=== PATIENT | male | born 1990 | race Caucasian/White ===

== ENCOUNTER 2017-06-22 07:10 | Inpatient (IN) | payer OTHER ==
[2017-06-22] VITALS (7 sets, daily range): BP systolic 118–130; BP diastolic 56–67; PULSE 69–95; RESP 12–17; TEMP 97.8–99; O2SAT 98–100
[~2017-06-22] VITALS: Ht 175.3 cm; Wt 68.0 kg
[2017-06-22] MEDS ORDERED: ONDANSETRON HCL 4 MG/2 ML VIAL ONE (07:18)
[2017-06-22] MEDS ORDERED: MORPHINE SULFATE 4 MG/ML INJ ONE (07:18)
[2017-06-22] MEDS ORDERED: IOHEXOL 350 MG/ML 10 ML VIAL (for RAD DIAG) IVCONTRAST ONE (07:32)
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
[2017-06-22 07:39] LABS: AUTOMATED NEUTROPHIL # 5.1 TH/MM3 (1.8-7.7); BASOPHIL % 0.5 % (0.0-2.0); EOSINOPHIL % 0.4 % (0.0-4.0); HEMATOCRIT 38.9 % (39.0-51.0); HEMOGLOBIN 13.1 GM/DL (13.0-17.0); LYMPH % 22.6 % (9.0-44.0); LYMPHOCYTE # 1.6 TH/MM3 (1.0-4.8); MEAN CELL VOLUME 85.2 FL (80.0-100.0); MEAN CORPUSCULAR HEMOGLOBIN 28.6 PG (27.0-34.0); MEAN CORPUSCULAR HGB CONC 33.6 % (32.0-36.0); MEAN PLATELET VOLUME 10.2 FL (7.0-11.0); MONOCYTE # 0.4 TH/MM3 (0-0.9); NEUT % 71.5 % (16.0-70.0); PLATELET COUNT 116 TH/MM3 (150-450); RED BLOOD COUNT 4.57 MIL/MM3 (4.50-5.90); RED CELL DISTRIBUTION WIDTH 13.1 % (11.6-17.2); WHITE BLOOD COUNT 7.1 TH/MM3 (4.0-11.0)
[2017-06-22] MEDS ORDERED: DIPHTH/TETANUS/ACEL PERTUSSIS (BOOSTER) 0.5 ML VIAL/PFS IM ONE (07:51)
[2017-06-22] MEDS ORDERED: ceFAZolin 2 GM PREMIX 50 ML ONE (07:51)
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
[2017-06-22 07:57] LABS: INTERNATIONAL NORMALIZED RATIO 1.1 RATIO; PROTHROMBIN TIME - PATIENT 11.2 SEC (9.8-11.6)
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
[2017-06-22] MEDS ORDERED: NALOXONE HCL 0.4 MG/ML AMP IV PUSH PRN ×2 (08:00→11:30)
[2017-06-22] MEDS ORDERED: MORPHINE SULFATE 2 MG/ML INJ IV PUSH ONE (08:00)
[2017-06-22] MEDS ORDERED: SODIUM CHLORIDE 0.9% FLUSH 10 ML FLUSH IV FLUSH PRN (08:00)
[2017-06-22] MEDS ORDERED: Post-op Orders (for Pharmacy) XX ONE (08:00)
[2017-06-22] MEDS ORDERED: metroNIDAZOLE 500 MG INJ 100 ML IV SCH (08:00)
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
[2017-06-22] MEDS: SODIUM CHLORIDE 0.9% FLUSH 10 ML FLUSH IV FLUSH SCH ×2 (09:00→22:58)
[2017-06-22] MEDS ORDERED: DO NOT ADM ANY ANTICOAGULANT DRUGS PRN (09:27)
[2017-06-22] MEDS ORDERED: HEPARIN SODIUM - IV 10,000 UNITS/10 ML VIAL OTHER ONE (09:36)
[2017-06-22] MEDS ORDERED: *morphine SULFATE 4 MG/ML PERIprocedure ONLY ONE (09:39)
[2017-06-22] MEDS ORDERED: *morphine SULFATE 10 MG/ML PERIprocedure ONLY ONE ×3 (09:43→10:40)
[2017-06-22] MEDS ORDERED: *HYDROmorphone PF 1 MG VIAL PERIprocedural Use ONLY ONE ×2 (09:48→10:02)
[2017-06-22] MEDS ORDERED: MORPHINE SULFATE 2 MG/ML INJ IV PUSH PRN (10:45)
[2017-06-22] MEDS: PANTOPRAZOLE SODIUM 40 MG VIAL IV PUSH SCH (11:00)
[2017-06-22] MEDS: SODIUM CHLOR 0.9% 1000 ML INJ 1,000 ML IV SCH ×2 (11:00→22:59)
[2017-06-22] MEDS ORDERED: MORPHINE SULFATE 30 MG/30 ML PCA IV SCH (11:30)
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
[2017-06-22] MEDS: PCA - TOTAL MG MORPHINE DELIVERED PER SHIFT SCH ×2 (14:00→22:57)
[2017-06-22] MEDS: metroNIDAZOLE 500 MG INJ 100 ML IV SCH ×2 (15:10→22:56)
[2017-06-22] MEDS ORDERED: diphenhydrAMINE HCL 50 MG/ML VIAL ONE (21:27)
[2017-06-22] MEDS: diphenhydrAMINE HCL 50 MG/ML VIAL IV PRN (21:28)
[2017-06-22] MEDS: ONDANSETRON HCL 4 MG/2 ML VIAL IV PUSH PRN ×2 (23:49→23:52)
[2017-06-22] MEDS: HYDROmorphone HCL PF 2 MG/ML VIAL IV PRN ×2 (23:50→23:52)
[2017-06-23] VITALS (11 sets, daily range): BP systolic 111–137; BP diastolic 70–80; PULSE 71–91; RESP 17–23; TEMP 98–99.3; O2SAT 93–98
[2017-06-23] MEDS: HYDROmorphone HCL PF 2 MG/ML VIAL IV PRN ×6 (02:45→23:55)
[2017-06-23] MEDS: diphenhydrAMINE HCL 50 MG/ML VIAL IV PRN (02:45)
[2017-06-23] MEDS: SODIUM CHLOR 0.9% 1000 ML INJ 1,000 ML IV SCH ×2 (05:32→16:55)
[2017-06-23] MEDS: metroNIDAZOLE 500 MG INJ 100 ML IV SCH (06:04)
[2017-06-23 06:10] LABS: AUTOMATED NEUTROPHIL # 6.6 TH/MM3 (1.8-7.7); BASOPHIL % 0.3 % (0.0-2.0); EOSINOPHIL % 0.1 % (0.0-4.0); HEMATOCRIT 36.9 % (39.0-51.0); HEMOGLOBIN 12.3 GM/DL (13.0-17.0); LYMPHOCYTE # 0.7 TH/MM3 (1.0-4.8); MEAN CELL VOLUME 85.8 FL (80.0-100.0); MEAN CORPUSCULAR HEMOGLOBIN 28.6 PG (27.0-34.0); MEAN CORPUSCULAR HGB CONC 33.3 % (32.0-36.0); MEAN PLATELET VOLUME 10.1 FL (7.0-11.0); MONO % 9.2 % (0.0-8.0); MONOCYTE # 0.7 TH/MM3 (0-0.9); NEUT % 81.4 % (16.0-70.0); PLATELET COUNT 107 TH/MM3 (150-450); RED CELL DISTRIBUTION WIDTH 13.2 % (11.6-17.2); WHITE BLOOD COUNT 8.1 TH/MM3 (4.0-11.0)
[2017-06-23 06:35] LABS: ALBUMIN 3.7 GM/DL (3.4-5.0); BICARBONATE 27.1 MEQ/L (21.0-32.0); CALCIUM 8.2 MG/DL (8.5-10.1); CREATININE 0.81 MG/DL (0.60-1.30)
[2017-06-23 06:37] LABS: DIRECT BILIRUBIN ADULT 0.2 MG/DL (0.0-0.2)
[2017-06-23 06:39] LABS: TOTAL BILIRUBIN ADULT 1.2 MG/DL (0.2-1.0); TOTAL PROTEIN 6.4 GM/DL (6.4-8.2)
[2017-06-23] MEDS: METHOCARBAMOL 500 MG TAB PO SCH ×3 (06:45→20:04)
[2017-06-23] MEDS: ACETAMINOPHEN 1000 MG/100 ML 100 ML IV SCH ×4 (06:45→23:55)
[2017-06-23] MEDS ORDERED: LACTULOSE SYRUP 20 GM/30 ML CUP PO PRN (06:45)
--- NOTE | 2017-06-23 08:06 | RADRPT ---
EXAM DATE/TIME: 06/23/2017 07:49 [facility] COMPARISON: CT THORAX W CONTRAST, June 22, 2017, 7:18. CHEST SINGLE AP, June 22, 2017, 7:12. INDICATIONS : Shortness of breath and abdominal pain. MEDICAL HISTORY : None. SURGICAL HISTORY : None. ENCOUNTER: Initial ACUITY: 1 day PAIN SCORE: 0/10 LOCATION: Bilateral chest FINDINGS: Portable AP view of the chest demonstrates a normal-sized cardiac silhouette. No effusion, consolidat ion, or pneumothorax is visualized. The bones and soft tissues demonstrate no acute abnormality. EKG lines overlie the. There is gastric distention. Surgical drain overlies the superior abdomen. The rig ht first rib fracture documented on prior CT is not appreciated. CONCLUSION: No acute cardiopulmonary abnormality is identified. Scott Dempsey MD on June 23, 2017 at 8:02 Board Certified Radiologist. This report was verified electronically.
[2017-06-23] MEDS: SODIUM CHLORIDE 0.9% FLUSH 10 ML FLUSH IV FLUSH SCH ×2 (08:33→20:04)
[2017-06-23] MEDS: PANTOPRAZOLE SODIUM 40 MG VIAL IV PUSH SCH (08:33)
[2017-06-23] MEDS: BACITRACIN TOP OINT 15 GM TUBE TOP SCH ×2 (08:34→20:45)
[2017-06-23] MEDS: POLYETHYLENE GLYCOL 17 GM PKG PO SCH (09:00)
[2017-06-23] MEDS: DOCUSATE SODIUM 50 MG/SENNA 8.6 MG TAB PO SCH ×2 (09:00→20:04)
[2017-06-23] MEDS ORDERED: fentaNYL 50 MCG/HR PATCH T-DERMAL SCH (10:00)
[2017-06-23] MEDS: ENOXAPARIN SODIUM 40 MG/0.4 ML SYRINGE SQ SCH (10:00)
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
[2017-06-23] MEDS ORDERED: fentaNYL 25 MCG/HR PATCH T-DERMAL SCH (22:00)
[2017-06-24] VITALS (7 sets, daily range): BP systolic 130–142; BP diastolic 76–85; PULSE 61–82; RESP 18; TEMP 96.7–98.7; O2SAT 93–98
[2017-06-24] MEDS: METHOCARBAMOL 500 MG TAB PO SCH ×3 (05:00→21:03)
[2017-06-24 05:06] LABS: HEMATOCRIT 34.8 % (39.0-51.0); HEMOGLOBIN 11.7 GM/DL (13.0-17.0)
[2017-06-24] MEDS: HYDROmorphone HCL PF 2 MG/ML VIAL IV PRN ×2 (08:13→11:53)
[2017-06-24] MEDS: DOCUSATE SODIUM 50 MG/SENNA 8.6 MG TAB PO SCH ×2 (08:14→21:03)
[2017-06-24] MEDS: ENOXAPARIN SODIUM 40 MG/0.4 ML SYRINGE SQ SCH (08:14)
[2017-06-24] MEDS: PANTOPRAZOLE SODIUM 40 MG VIAL IV PUSH SCH (08:14)
[2017-06-24] MEDS: POLYETHYLENE GLYCOL 17 GM PKG PO SCH (08:14)
[2017-06-24] MEDS: SODIUM CHLORIDE 0.9% FLUSH 10 ML FLUSH IV FLUSH SCH ×2 (08:18→21:05)
[2017-06-24] MEDS: BACITRACIN TOP OINT 15 GM TUBE TOP SCH ×2 (08:25→21:15)
[2017-06-24] MEDS: diphenhydrAMINE HCL 50 MG/ML VIAL IV PRN (11:30)
[2017-06-24] MEDS: ONDANSETRON HCL 4 MG/2 ML VIAL IV PUSH PRN (11:32)
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
[2017-06-24 19:57] LABS: BILIRUBIN, URINE NEG (NEG); BLOOD, URINE MOD (NEG); GLUCOSE,URINE NEG (NEG); KETONE, URINE 80 mg/dL (NEG); MUCUS URINE FEW /lpf (OCC); NITRITE,URINE NEG (NEG); URINE COLOR YELLOW (YELLW/STRAW); URINE LEUKOCYTE ESTERASE NEG (NEG)
[2017-06-25] MEDS: METHOCARBAMOL 500 MG TAB PO SCH ×2 (06:21→14:41)
[2017-06-25 06:50] LABS: ALBUMIN 4.2 GM/DL (3.4-5.0); ALKALINE PHOSPHATASE 70 U/L (45-117); ALT (GPT) 196 U/L (12-78); AST (GOT) 76 U/L (15-37); BLOOD UREA NITROGEN 10 MG/DL (7-18); CALCIUM 9.3 MG/DL (8.5-10.1); CHLORIDE 97 MEQ/L (98-107); CREATININE 0.81 MG/DL (0.60-1.30); GLOMERULAR FILTRATION RATE 116 ML/MIN (>89); GLUCOSE,RANDOM 88 MG/DL (74-106); SODIUM (NA) 137 MEQ/L (136-145); TOTAL BILIRUBIN ADULT 1.3 MG/DL (0.2-1.0); TOTAL PROTEIN 7.9 GM/DL (6.4-8.2)
[2017-06-25 07:02] LABS: HEMATOCRIT 38.3 % (39.0-51.0)
[2017-06-25] MEDS ORDERED: PANTOPRAZOLE SOD 40 MG DELAYED RELEASE TAB PO SCH (09:00)
[2017-06-25] MEDS: POLYETHYLENE GLYCOL 17 GM PKG PO SCH (09:22)
[2017-06-25] MEDS: DOCUSATE SODIUM 50 MG/SENNA 8.6 MG TAB PO SCH (09:22)
[2017-06-25] MEDS: ENOXAPARIN SODIUM 40 MG/0.4 ML SYRINGE SQ SCH (09:22)
[2017-06-25] MEDS: SODIUM CHLORIDE 0.9% FLUSH 10 ML FLUSH IV FLUSH SCH (09:23)
[2017-06-25] MEDS: BACITRACIN TOP OINT 15 GM TUBE TOP SCH (09:24)
[2017-06-25] MEDS: SODIUM CHLOR 0.9% 1000 ML INJ 1,000 ML IV SCH (09:35)
[2017-06-25] MEDS ORDERED: LACTULOSE SYRUP 20 GM/30 ML CUP PO ONE (11:30)
[2017-06-25 12:00] VITALS: BP 157/85; PULSE 71; RESP 18; TEMP 97; O2SAT 99
[2017-06-25] MEDS ORDERED: PERC7.5T13 PO (14:22)
[2017-06-25] MEDS ORDERED: PERI PO (14:22)
[2017-06-25] MEDS ORDERED: ZOFR4TAB3 SL (14:22)
[2017-06-25] MEDS ORDERED: METH500T3 PO (15:56)
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
[2017-06-26] MEDS ORDERED: REMOVE OLD DURAGESIC (FENTANYL) PATCH T-DERMAL SCH ×2 (10:00→22:00)
== END 2017-06-25 17:09 | disposition home or self-care (01) | DRG 957 ==
LOC: NEPI 07:10 → EDBD 07:48 → NEDA 07:48 → N03A 11:02 → N06B 06-23 18:32
PROVIDERS: ADMIT Surgery; ATTEND Surgery
PROC: 0W3P0ZZ Control Bleeding in Gastrointestinal Tract, Open Approach (ICD-10-PCS; 2017-06-22)
PROC: 0FQ20ZZ Repair Left Lobe Liver, Open Approach (ICD-10-PCS; principal; 2017-06-22 08:15)
DX: S36.116A Major laceration of liver, initial encounter (principal); R57.8 Other shock; S27.321A Contusion of lung, unilateral, initial encounter; S36.592A Other injury of descending [left] colon, initial encounter; S36.020A Minor contusion of spleen, initial encounter; S06.0X9A Concussion with loss of consciousness of unspecified duration, initial encounter; S22.31XA Fracture of one rib, right side, initial encounter for closed fracture; V49.49XA Driver injured in collision with other motor vehicles in traffic accident, initial encounter; Y92.410 Unspecified street and highway as the place of occurrence of the external cause
CPT/HCPCS: 70450; 71045; 71260; 72125; 72170; 73560; 74177; 80048; 80053; 80076; 81001; 82435; 82565; 82805; 82947; 84132; 84295; 84520; 85014; 85018; 85025; 85610; 85730; 86850; 86900; 86901; 86920; 90471; 90715; 94150; 96374; 96375; 96376; 99291; C9113; G0390; J0131; J0690; J1170; J1200; J1644; J1650; J2270; J2405; J3010; J7030; Q9967

== ENCOUNTER 2017-06-28 12:06 | Inpatient (IN) | payer OTHER ==
[~2017-06-28] VITALS: Ht 167.6 cm; Wt 59.1 kg
[~2017-06-28 12:06] MED LIST: METH500T3 PO; PERC7.5T13 PO; PERI PO; ZOFR4TAB3 SL
[2017-06-28 12:07] VITALS: BP 132/83; PULSE 78; RESP 16; TEMP 97.7; O2SAT 99
[2017-06-28 13:19] LABS: AUTOMATED NEUTROPHIL # 4.1 TH/MM3 (1.8-7.7); BASOPHIL % 0.7 % (0.0-2.0); EOSINOPHIL # 0.1 TH/MM3 (0-0.4); EOSINOPHIL % 1.9 % (0.0-4.0); HEMATOCRIT 43.1 % (39.0-51.0); HEMOGLOBIN 14.5 GM/DL (13.0-17.0); LYMPH % 18.2 % (9.0-44.0); LYMPHOCYTE # 1.1 TH/MM3 (1.0-4.8); MEAN CELL VOLUME 84.8 FL (80.0-100.0); MEAN CORPUSCULAR HEMOGLOBIN 28.5 PG (27.0-34.0); MEAN CORPUSCULAR HGB CONC 33.6 % (32.0-36.0); MEAN PLATELET VOLUME 8.9 FL (7.0-11.0); MONO % 10.2 % (0.0-8.0); MONOCYTE # 0.6 TH/MM3 (0-0.9); PLATELET COUNT 202 TH/MM3 (150-450); RED BLOOD COUNT 5.08 MIL/MM3 (4.50-5.90); RED CELL DISTRIBUTION WIDTH 13.5 % (11.6-17.2)
[2017-06-28 13:29] LABS: PROTHROMBIN TIME - PATIENT 10.3 SEC (9.8-11.6)
[2017-06-28 13:31] LABS: AMORPHOUS SEDIMENT, URINE OCC; BILIRUBIN, URINE NEG (NEG); BLOOD, URINE NEG (NEG); GLUCOSE,URINE NEG (NEG); KETONE, URINE 10 mg/dL (NEG); MUCUS URINE FEW /lpf (OCC); NITRITE,URINE NEG (NEG); URINE COLOR YELLOW (YELLW/STRAW); URINE LEUKOCYTE ESTERASE NEG (NEG)
[2017-06-28 13:41] LABS: ALBUMIN 4.6 GM/DL (3.4-5.0); AST (GOT) 408 U/L (15-37); BICARBONATE 31.3 MEQ/L (21.0-32.0); BLOOD UREA NITROGEN 17 MG/DL (7-18); CALCIUM 10.1 MG/DL (8.5-10.1); CHLORIDE 99 MEQ/L (98-107); CREATININE 0.99 MG/DL (0.60-1.30); GLOMERULAR FILTRATION RATE 92 ML/MIN (>89); GLUCOSE,RANDOM 97 MG/DL (74-106); SODIUM (NA) 136 MEQ/L (136-145)
[2017-06-28 13:42] LABS: LIPASE 903 U/L (73-393)
[2017-06-28 13:46] LABS: ALKALINE PHOSPHATASE 123 U/L (45-117); ALT (GPT) 727 U/L (12-78); TOTAL PROTEIN 9.1 GM/DL (6.4-8.2)
[2017-06-28] MEDS ORDERED: ZOFR4TAB PO (13:53)
[2017-06-28] MEDS ORDERED: MIRA3350 PO (13:53)
[2017-06-28] MEDS ORDERED: CYCL5TAB PO (13:53)
[2017-06-28] MEDS ORDERED: PERC7.5T13 PO (13:53)
[2017-06-28] MEDS ORDERED: SENN187 (13:53)
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
[2017-06-28] MEDS ORDERED: IOHEXOL 350 MG/ML 10 ML VIAL (for RAD DIAG) IVCONTRAST ONE (14:19)
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
[2017-06-28] MEDS ORDERED: MORPHINE SULFATE 4 MG/ML INJ IV PUSH ONE (15:45)
[2017-06-28] MEDS ORDERED: diphenhydrAMINE HCL 25 MG CAP PO ONE (15:45)
[2017-06-28] MEDS ORDERED: ONDANSETRON HCL 4 MG/2 ML VIAL IV PUSH ONE (15:45)
[2017-06-28] MEDS ORDERED: ENALAPRILAT 1.25 MG/ML VIAL IV PUSH PRN (18:45)
[2017-06-28 19:38] VITALS: BP 134/84; PULSE 64; RESP 19; O2SAT 97
[2017-06-28] MEDS: SODIUM CHLOR 0.9% 1000 ML INJ 1,000 ML IV SCH (19:58)
[2017-06-28] MEDS: HYDROmorphone HCL PF 2 MG/ML VIAL IV PUSH PRN ×2 (19:59→23:53)
[2017-06-28] MEDS: ONDANSETRON HCL 4 MG/2 ML VIAL IV PUSH PRN (20:00)
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
[2017-06-28 21:30] VITALS: BP 135/83; PULSE 65; RESP 16; TEMP 97.7; O2SAT 95
[2017-06-28] MEDS: DOCUSATE SODIUM 100 MG CAP PO SCH (21:41)
[2017-06-28] MEDS: PANTOPRAZOLE SODIUM 40 MG VIAL IVP SCH (21:41)
[2017-06-29 00:10] VITALS: BP 133/82; PULSE 75; RESP 17; TEMP 97.3; O2SAT 100
[2017-06-29] MEDS: SODIUM CHLOR 0.9% 1000 ML INJ 1,000 ML IV SCH ×3 (03:30→19:00)
[2017-06-29 04:10] VITALS: BP 123/72; PULSE 66; RESP 18; TEMP 96.8; O2SAT 98
[2017-06-29] MEDS: diphenhydrAMINE HCL 50 MG/ML VIAL IV PRN ×3 (04:19→23:17)
[2017-06-29 07:21] LABS: AUTOMATED NEUTROPHIL # 3.1 TH/MM3 (1.8-7.7); BASOPHIL % 0.9 % (0.0-2.0); EOSINOPHIL # 0.2 TH/MM3 (0-0.4); EOSINOPHIL % 2.7 % (0.0-4.0); HEMATOCRIT 34.8 % (39.0-51.0); HEMOGLOBIN 11.7 GM/DL (13.0-17.0); LYMPH % 30.2 % (9.0-44.0); LYMPHOCYTE # 1.7 TH/MM3 (1.0-4.8); MEAN CELL VOLUME 85.2 FL (80.0-100.0); MEAN CORPUSCULAR HEMOGLOBIN 28.7 PG (27.0-34.0); MEAN CORPUSCULAR HGB CONC 33.7 % (32.0-36.0); MEAN PLATELET VOLUME 9.4 FL (7.0-11.0); MONO % 12.7 % (0.0-8.0); MONOCYTE # 0.7 TH/MM3 (0-0.9); NEUT % 53.5 % (16.0-70.0); PLATELET COUNT 189 TH/MM3 (150-450); RED BLOOD COUNT 4.08 MIL/MM3 (4.50-5.90); RED CELL DISTRIBUTION WIDTH 13.1 % (11.6-17.2); WHITE BLOOD COUNT 5.8 TH/MM3 (4.0-11.0)
[2017-06-29] MEDS: HYDROmorphone HCL PF 2 MG/ML VIAL IV PUSH PRN ×3 (07:29→20:51)
[2017-06-29 07:44] LABS: ALKALINE PHOSPHATASE 83 U/L (45-117); TOTAL BILIRUBIN ADULT 0.7 MG/DL (0.2-1.0); TOTAL PROTEIN 6.9 GM/DL (6.4-8.2)
[2017-06-29 07:59] LABS: ALBUMIN 3.5 GM/DL (3.4-5.0); ALT (GPT) 436 U/L (12-78); AST (GOT) 176 U/L (15-37); BICARBONATE 27.4 MEQ/L (21.0-32.0); BLOOD UREA NITROGEN 21 MG/DL (7-18); CALCIUM 8.9 MG/DL (8.5-10.1); CHLORIDE 103 MEQ/L (98-107); CREATININE 1.04 MG/DL (0.60-1.30); GLOMERULAR FILTRATION RATE 87 ML/MIN (>89); GLUCOSE,RANDOM 71 MG/DL (74-106); LIPASE 763 U/L (73-393); SODIUM (NA) 138 MEQ/L (136-145)
[2017-06-29 08:00] VITALS: BP 119/68; PULSE 72; RESP 18; TEMP 96.5; O2SAT 98
[2017-06-29] MEDS: BACITRACIN TOP OINT 15 GM TUBE TOP SCH ×2 (09:00→20:52)
[2017-06-29] MEDS: DOCUSATE SODIUM 100 MG CAP PO SCH ×2 (09:42→20:51)
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
[2017-06-29 12:11] VITALS: BP 131/77; PULSE 64; RESP 17; TEMP 96.6; O2SAT 97
[2017-06-29 16:06] VITALS: BP 123/79; PULSE 64; RESP 18; TEMP 97; O2SAT 99
[2017-06-29 20:00] VITALS: BP 119/78; PULSE 73; O2SAT 100
[2017-06-29] MEDS: PANTOPRAZOLE SODIUM 40 MG VIAL IVP SCH (20:51)
[2017-06-29] MEDS: ONDANSETRON HCL 4 MG/2 ML VIAL IV PUSH PRN (20:52)
[2017-06-30] VITALS: BP 130/70; PULSE 98; RESP 16; TEMP 98.2; O2SAT 98
[2017-06-30] MEDS: HYDROmorphone HCL PF 2 MG/ML VIAL IV PUSH PRN ×3 (02:03→22:46)
[2017-06-30] MEDS: SODIUM CHLORIDE 0.9% FLUSH 10 ML FLUSH IV FLUSH PRN ×3 (02:04→21:26)
[2017-06-30] MEDS: SODIUM CHLOR 0.9% 1000 ML INJ 1,000 ML IV SCH ×3 (03:00→18:39)
[2017-06-30 05:30] VITALS: BP 112/62; PULSE 63; RESP 15; TEMP 97.3; O2SAT 99
[2017-06-30 06:12] LABS: AUTOMATED NEUTROPHIL # 2.5 TH/MM3 (1.8-7.7); BASOPHIL % 0.9 % (0.0-2.0); EOSINOPHIL # 0.1 TH/MM3 (0-0.4); EOSINOPHIL % 2.7 % (0.0-4.0); HEMATOCRIT 34.7 % (39.0-51.0); HEMOGLOBIN 11.8 GM/DL (13.0-17.0); LYMPH % 30.2 % (9.0-44.0); LYMPHOCYTE # 1.4 TH/MM3 (1.0-4.8); MEAN CELL VOLUME 84.9 FL (80.0-100.0); MEAN CORPUSCULAR HEMOGLOBIN 28.9 PG (27.0-34.0); MEAN PLATELET VOLUME 8.8 FL (7.0-11.0); MONO % 12.7 % (0.0-8.0); MONOCYTE # 0.6 TH/MM3 (0-0.9); NEUT % 53.5 % (16.0-70.0); PLATELET COUNT 183 TH/MM3 (150-450); RED BLOOD COUNT 4.09 MIL/MM3 (4.50-5.90); RED CELL DISTRIBUTION WIDTH 12.8 % (11.6-17.2); WHITE BLOOD COUNT 4.7 TH/MM3 (4.0-11.0)
[2017-06-30] MEDS: ONDANSETRON HCL 4 MG/2 ML VIAL IV PUSH PRN ×3 (06:19→21:26)
[2017-06-30 06:41] LABS: ALBUMIN 3.6 GM/DL (3.4-5.0); ALT (GPT) 321 U/L (12-78); AST (GOT) 88 U/L (15-37); BICARBONATE 33.1 MEQ/L (21.0-32.0); BLOOD UREA NITROGEN 11 MG/DL (7-18); CALCIUM 8.9 MG/DL (8.5-10.1); CHLORIDE 101 MEQ/L (98-107); CREATININE 0.84 MG/DL (0.60-1.30); GLOMERULAR FILTRATION RATE 111 ML/MIN (>89); GLUCOSE,RANDOM 88 MG/DL (74-106); LIPASE 943 U/L (73-393); SODIUM (NA) 138 MEQ/L (136-145)
[2017-06-30 06:43] LABS: ALKALINE PHOSPHATASE 84 U/L (45-117); TOTAL BILIRUBIN ADULT 0.6 MG/DL (0.2-1.0); TOTAL PROTEIN 7.1 GM/DL (6.4-8.2)
[2017-06-30 06:54] LABS: AMYLASE 167 U/L (25-115)
[2017-06-30 08:23] VITALS: BP 115/61; PULSE 59; RESP 17; TEMP 96.8; O2SAT 98
[2017-06-30] MEDS: DOCUSATE SODIUM 100 MG CAP PO SCH ×2 (08:47→21:26)
[2017-06-30] MEDS: BACITRACIN TOP OINT 15 GM TUBE TOP SCH ×2 (08:47→21:26)
[2017-06-30] MEDS: MAGNESIUM HYDROXIDE SUSP 30 ML CUP PO PRN ×2 (08:47→22:53)
[2017-06-30 12:23] VITALS: BP 129/81; PULSE 70; RESP 18; TEMP 97.8; O2SAT 99
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
[2017-06-30 16:00] VITALS: BP 118/67; PULSE 71; RESP 18; TEMP 96.8; O2SAT 97
[2017-06-30] MEDS: diphenhydrAMINE HCL 50 MG/ML VIAL IV PRN ×2 (16:40→22:53)
[2017-06-30 20:00] VITALS: BP 129/74; PULSE 76; RESP 16; TEMP 98.4; O2SAT 98
[2017-06-30] MEDS: PANTOPRAZOLE SODIUM 40 MG VIAL IVP SCH (21:25)
[2017-07-01] VITALS: BP 114/74; PULSE 67; RESP 16; TEMP 96.6; O2SAT 98
[2017-07-01] MEDS: SODIUM CHLOR 0.9% 1000 ML INJ 1,000 ML IV SCH ×2 (03:00→11:00)
[2017-07-01] MEDS: HYDROmorphone HCL PF 2 MG/ML VIAL IV PUSH PRN ×2 (05:20→12:23)
[2017-07-01] MEDS: SODIUM CHLORIDE 0.9% FLUSH 10 ML FLUSH IV FLUSH PRN (05:20)
[2017-07-01 08:00] VITALS: BP 115/72; PULSE 63; RESP 18; TEMP 96.4; O2SAT 100
[2017-07-01] MEDS: MAGNESIUM HYDROXIDE SUSP 30 ML CUP PO PRN (08:57)
[2017-07-01] MEDS: DOCUSATE SODIUM 100 MG CAP PO SCH (08:57)
[2017-07-01] MEDS: BACITRACIN TOP OINT 15 GM TUBE TOP SCH (09:00)
[2017-07-01] MEDS: ONDANSETRON HCL 4 MG/2 ML VIAL IV PUSH PRN ×2 (09:42→14:28)
[2017-07-01 12:00] VITALS: BP 121/70; PULSE 65; RESP 18; TEMP 97.3; O2SAT 98
[2017-07-01 12:33] LABS: LIPASE 799 U/L (73-393)
[2017-07-01 12:35] LABS: AMYLASE 150 U/L (25-115)
[2017-07-01] MEDS ORDERED: PERC5TAB12 PO (13:25)
[2017-07-01] MEDS ORDERED: ROBA500T PO (13:47)
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
== END 2017-07-01 17:50 | disposition home or self-care (01) | DRG 440 ==
LOC: NEPE 12:06 → MERGE 12:06 → NEDA 15:44 → OBSVTOIN 18:39 → N06B 21:28
PROVIDERS: ADMIT Surgery; ATTEND Surgery
DX: K85.90 Acute pancreatitis without necrosis or infection, unspecified (principal); S36.116D Major laceration of liver, subsequent encounter
CPT/HCPCS: 71046; 74177; 80053; 81001; 82150; 83690; 85025; 85610; 85730; 96374; 96375; 96376; C9113; J1170; J1200; J2270; J2405; J7030; Q9967